=== PATIENT | male | born 1985 | race African-American/Black ===

== ENCOUNTER 2019-12-17 21:50 | Emergency (ER) | payer MEDICAID, SELFPAY ==
[~2019-12-17] VITALS: Ht 180.3 cm; Wt 72.6 kg
[~2019-12-17 21:50] MED LIST: PROTONIX40 MG ORAL; REGLAN10 MG PO
[2019-12-17 22:12] VITALS: BP 142/88
[2019-12-17 22:45] VITALS: BP 142/88
--- NOTE | 2019-12-18 03:38 | Emergency Room Report ---
History of Present Illness General Chief Complaint: General Complaint Source: Patient Present Illness HPI 34-year-old male presents to ED for evaluation. Patient states he does not have any complaints at this time but "wants to be checked out". Denies any fevers or chills. Denies chest pain or shortness of breath. Denies any abdominal pain. No other aggravating relieving factors. Denies any other associated symptoms Allergies: Coded Allergies: No Known Allergies (Unverified , 01/14/13) COVID-19 Screening Contact w/high risk pt: No Experienced COVID-19 symptoms?: No COVID-19 Testing performed PUBLIC HEALTH ADVISOR: No Patient History Past Medical History: none Past Surgical History: none Pertinent Family History: none Social History: Reports: alcohol use; Denies: smoking, drug use Immunizations: UTD Reviewed Nursing Documentation: PMH: Agreed; PSxH: Agreed Nursing Documentation-PMH Past Medical History: No Stated History Review of Systems All Other Systems: negative except mentioned in HPI Physical Exam Vital Signs Date Time Temp Pulse Resp B/P (MAP) Pulse Ox O2 Delivery O2 Flow Rate FiO2 12/17/19 22:12 98.4 95 16 142/88 (106) 99 Room Air Sp02 EP Interpretation: reviewed, normal General Appearance: no apparent distress, alert, GCS 15, non-toxic Head: normocephalic, atraumatic Eyes: bilateral eye normal inspection, bilateral eye PERRL ENT: hearing grossly normal, normal pharynx, no angioedema, normal voice Neck: full range of motion, supple/symm/no masses Respiratory: chest non-tender, lungs clear, normal breath sounds, speaking full sentences Cardiovascular #1: regular rate, rhythm, no edema Cardiovascular #2: 2+ carotid (R), 2+ carotid (L), 2+ radial (R), 2+ radial (L) , 2+ dorsalis pedis (R), 2+ dorsalis pedis (L) Gastrointestinal: normal bowel sounds, non tender, soft, non-distended, no guarding, no rebound Rectal: deferred Genitourinary: normal inspection, no CVA tenderness Musculoskeletal: back normal, normal range of motion, gait/station normal, non- tender Neurologic: alert, motor strength/tone normal, oriented x3, sensory intact, responsive, speech normal Psychiatric: judgement/insight normal, memory normal, mood/affect normal, no suicidal/homicidal ideation Reflexes: 3+ bicep (R), 3+ bicep (L), 3+ tricep (R), 3+ tricep (L), 3+ knee (R) , 3+ knee (L) Lymphatic: no adenopathy Medical Decision Making Diagnostic Impression: Primary Impression: Encounter for generalized patient complaints ER Course Hospital Course 34 yo M presents for general checkup Clinical course Patient placed in chair. Additional history physical exam reveals male in no acute distress. Abdomen soft. Lungs clear. Normal heart sounds. Vitals stable. I explained to patient that we do not perform general checkups here. This is an emergency room. However I am happy to provide him with referrals to a PMD. Patient does appear somewhat intoxicated. Safe for discharge close outpatient follow-up Diagnosis - encounter for generalized patient complaints stable and discharged to home. Followup with PMD. Return to ED if symptoms recur or worsen Last Vital Signs Date Time Temp Pulse Resp B/P (MAP) Pulse Ox O2 Delivery O2 Flow Rate FiO2 12/17/19 22:12 98.4 95 16 142/88 (106) 99 Room Air Status: improved Disposition: HOME, SELF-CARE Condition: Stable Referrals: [facility] Patient Instructions: Preventive Care for Adults, Male Jason Koehler MD Dec 18, 2019 03:38
== END 2019-12-17 22:45 | disposition home or self-care (01) ==
LOC: EMR 22:35
DX: Z00.00 Encounter for general adult medical examination without abnormal findings (principal)
CPT/HCPCS: 99281